=== PATIENT | male | born 1960 | race Caucasian/White ===

== ENCOUNTER 2019-11-12 10:27 | Emergency (ER) | payer MEDICAID, OTHER ==
[~2019-11-12] VITALS: Ht 167.6 cm; Wt 90.0 kg
[2019-11-12 10:32] VITALS: BP 168/90
[2019-11-12] MEDS ORDERED: HYDR28CR14 TOP (12:05)
[2019-11-12] MEDS ORDERED: AMLO10TA4 PO (12:05)
[2019-11-12] MEDS ORDERED: NITR0.4T51 SL (12:05)
[2019-11-12] MEDS ORDERED: METO-539 PO (12:05)
== END 2019-11-12 13:10 | disposition home or self-care (01) ==
LOC: ER 10:28
DX: L30.9 Dermatitis, unspecified (principal); Z76.0 Encounter for issue of repeat prescription; I10 Essential (primary) hypertension; Z56.0 Unemployment, unspecified; Z60.2 Problems related to living alone; Z88.2 Allergy status to sulfonamides; Z79.899 Other long term (current) drug therapy
CPT/HCPCS: 99283